=== PATIENT | male | born 1965 | race African-American/Black ===

== ENCOUNTER 2018-08-01 14:50 | Outpatient (CLI) | payer BC ==
[2018-08-01] MEDS ORDERED: Iopamidol 370 76% 100 ML VIAL ONE (16:23)
--- NOTE | 2018-08-01 17:52 | CT ---
CT ABDOMEN WITH AND WITHOUT IV CONTRAST: 08/01/18 HISTORY: Alcoholic pancreatitis. Abnormal prior CT scan examination. Followup evaluation. COMPARISON: 05/14/18. FINDINGS: There is calcified granuloma at the right lung base. The lung bases are otherwise clear. There is a stable 1.6 cm low density lesion seen within the head of the pancreas, and the parenchyma of the pancreas surrounding this lesion again remains mildly hypodense. The pancreas otherwise enhanc es normally. Postcholecystectomy changes are noted. The liver, spleen, bilateral adrenal glands, kidneys, and opacified bowel demonstrate a normal CT mateo earance. Vascular calcifications seen in the abdominal aorta involving the iliac arteries. There has been no i nterval change compared to the prior exam. IMPRESSION: Overall stable hypodense lesion in the pancreatic head. This is difficult to further characterize. MR I abdomen with and without IV contrast may be helpful for further characterization. POS: PRIYA
== END 2018-08-01 14:51 | disposition home or self-care (01) ==
LOC: BICCT 14:50
PROVIDERS: ATTEND Internal Medicine Gastroenterology
DX: K86.0 Alcohol-induced chronic pancreatitis (principal); R93.3 Abnormal findings on diagnostic imaging of other parts of digestive tract; K86.9 Disease of pancreas, unspecified
CPT/HCPCS: 74170

== ENCOUNTER 2019-03-12 08:51 | Outpatient (CLI) | payer BC ==
--- NOTE | 2019-03-12 09:56 | CT ---
CT CHEST WITH IV CONTRAST CLINICAL INDICATION: Patient reports abnormal chest x-ray at outside institution. COMPARISON: None FINDINGS: Aorta: Vascular calcifications are seen in the coronary arteries as well as involving the thoracic ao rta. The thoracic aorta is normal in caliber without evidence of an aortic dissection. Lungs: There are scattered areas of linear and slight groundglass densities seen at the medial aspect of the upper lobes bilaterally in a paramediastinal location as well as involving the region of the lingula and each lower lobe. Findings may be related to infectious or inflammatory process. No di screte pulmonary nodule or mass is identified. No pleural effusion is seen. Calcified granulomata are seen at the right lung base. Mediastinum: There is no evidence of lymphadenopathy. Thyroid gland: Normal CT appearance. Osseous structures: Remote anterior right-sided rib fractures are seen. There is a compression fractu re involving the T8 vertebral body of indeterminate age. Small Schmorl's node is seen in the superior endplate of the T8 vertebral body. Chest wall: No abnormality visualized. Upper abdomen: Visualized liver demonstrates decreased attenuation which may be attributable to fatty infiltration. Postcholecystectomy changes are noted. IMPRESSION: 1. Scattered linear and groundglass densities within the lungs bilaterally which may be attributable to infectious or inflammatory process. Follow-up evaluation is recommended. 2. No discrete pulmonary nodule or mass is seen, and there is no pleural effusion. 3. Prominent vascular calcifications involving the coronary arteries. 4. Fatty infiltration liver. 5. Postcholecystectomy changes. 6. Indeterminate age wedge-shaped compression fracture T8 vertebral body. Remote anterior right-sided rib fractures are seen.
== END 2019-03-12 08:52 | disposition home or self-care (01) ==
LOC: BICCT 08:51
PROVIDERS: ATTEND Family Medicine
DX: R91.8 Other nonspecific abnormal finding of lung field (principal); I25.10 Atherosclerotic heart disease of native coronary artery without angina pectoris; K76.0 Fatty (change of) liver, not elsewhere classified; Z90.49 Acquired absence of other specified parts of digestive tract
CPT/HCPCS: 71260

== ENCOUNTER 2022-08-23 14:30 | Outpatient (CLI) | payer BC | END 2022-08-23 14:31 | disposition home or self-care (01) | LOC: BICRAD 14:30 | PROVIDERS: ATTEND Nurse Practitioner Family | DX: M43.17 Spondylolisthesis, lumbosacral region (principal); M54.16 Radiculopathy, lumbar region | CPT/HCPCS: 72120 ==

== ENCOUNTER 2022-11-22 10:32 | Outpatient (CLI) | payer BC ==
[2022-11-22 11:54] LABS: Hemoglobin 13.2 g/dL (13.5-17.5); Mean Corpuscular HGB CONC 35.3 g/dL (32.0-36.0); Mean Platelet Volume 9.9 fl (7.4-10.4); Platelet Count 135 10x3/uL (150-450); RBC Distribution Width 14.3 % (11.5-14.5); White Blood Cell (WBC) Count 4.6 10x3/uL (3.5-10.5)
[2022-11-22 11:57] LABS: INR-International Normal Ratio 1.1; PTT 29.8 sec (22.0-33.0); Prothrombin Time 12.2 sec (9.5-12.1)
== END 2022-11-22 10:33 | disposition home or self-care (01) ==
LOC: LABBT 10:32
PROVIDERS: ATTEND Neurological Surgery
DX: Z01.812 Encounter for preprocedural laboratory examination (principal); M43.16 Spondylolisthesis, lumbar region; M48.062 Spinal stenosis, lumbar region with neurogenic claudication
CPT/HCPCS: 85027; 85610; 85730

== ENCOUNTER 2022-11-24 05:44 | Observation (INO) | payer BC ==
[2022-11-23 10:11] VITALS: BMI 25.0
[2022-11-24] MEDS ORDERED: Bupivacaine HCl 0.5%/Epinephrine 1:200,000/PF 30 ml Vial ONE (06:10)
[2022-11-24] MEDS ORDERED: Thrombin 5000 UNITS/5 ML VIAL ONE (06:10)
[2022-11-24] MEDS ORDERED: Vancomycin 1 GM VIAL ONE (06:10)
[2022-11-24] MEDS ORDERED: Neomycin-Polymyxin 1 ML AMP ONE ×2 (06:10→11:38)
[2022-11-24] MEDS ORDERED: CEFAZOLIN 2 GM VIAL ONE (06:39)
[2022-11-24] MEDS ORDERED: Sodium Chloride 0.9% 100 ML ONE (06:39)
[2022-11-24] MEDS ORDERED: Fentanyl 250 MCG/5 ML VIAL ONE (06:39)
[2022-11-24] MEDS ORDERED: Morphine 2 MG/ML VIAL SLOW IVP PRN (06:46)
[2022-11-24] MEDS ORDERED: Mag-Al 1200 mg/1200 mg/30 ML UDCUP PO PRN (06:46)
[2022-11-24] MEDS ORDERED: Bisacodyl 10 MG SUPP PR PRN (06:46)
[2022-11-24] MEDS ORDERED: Milk Of Magnesia 30 ML UDCUP PO PRN (06:46)
[2022-11-24] MEDS ORDERED: Ondansetron PF 4 MG/2 ML Vial IVP PRN (06:46)
[2022-11-24] MEDS ORDERED: Prochlorperazine 10 MG/2 ML VIAL IM PRN (06:46)
[2022-11-24] MEDS ORDERED: diphenhydrAMINE 50 MG/ML VIAL IVP PRN (06:46)
[2022-11-24] MEDS ORDERED: Acetaminophen/Codeine 30-300mg Tablet PO PRN (06:46)
[2022-11-24] MEDS ORDERED: HYDROcodone/Acetaminophen 7.5/325 mg Tablet PO PRN (06:46)
[2022-11-24] MEDS ORDERED: tiZANidine HCl 4 MG TAB PO PRN (06:48)
[2022-11-24] MEDS ORDERED: PROPOFOL 200 MG/20 ML VIAL ONE (06:55)
[2022-11-24] MEDS ORDERED: Glycopyrrolate 0.2 MG/ML 5 ML SYRINGE ONE (06:55)
[2022-11-24] MEDS ORDERED: Ondansetron PF 4 MG/2 ML Vial ONE (06:55)
[2022-11-24] MEDS ORDERED: Rocuronium Bromide 10 MG/ML (10ML VIAL) ONE (06:55)
[2022-11-24] MEDS ORDERED: Lidocaine 1% PF 5 ML VIAL ONE (06:55)
[2022-11-24] MEDS ORDERED: Dexamethasone 20 MG/5 ML VIAL ONE (06:55)
[2022-11-24] MEDS ORDERED: NEOSTIGMINE 3 MG/3 ML SYR 3 MG/3 ML SYRINGE ONE (06:55)
[2022-11-24] MEDS ORDERED: Vecuronium 10 MG VIAL ONE (06:55)
[2022-11-24] MEDS ORDERED: PHENYLEPHRINE-NS 100 MCG/ML 10 ML SYRINGE ONE ×2 (06:55→07:52)
[2022-11-24 07:08] LABS: SARS-CoV-2 NAA Rapid Test Not Detected (NotDetected)
[2022-11-24] MEDS ORDERED: HYDROmorphone 2 MG/ML VIAL ONE (12:40)
[2022-11-24] MEDS ORDERED: HYDROmorphone 2 MG/ML VIAL SLOW IVP PRN (13:05)
[2022-11-24] MEDS ORDERED: Morphine Sulfate 2 MG/ML SYRINGE SLOW IVP PRN (13:05)
[2022-11-24] MEDS ORDERED: PACU-Morphine 4MG/ML VIAL SLOW IVP PRN (13:05)
[2022-11-24] MEDS ORDERED: Ondansetron HCl/PF 4 MG/2 ML Vial IVP PRN (13:05)
[2022-11-24] MEDS ORDERED: Promethazine HCl 25 MG/ML VIAL IM PRN (13:05)
[2022-11-24] MEDS ORDERED: CEFAZOLIN 2 GM in Sodium Chloride 0.9% 100 ML IVPB SCH (14:00)
[2022-11-24] MEDS: Sodium Chloride 0.9% 1,000 ML IV SCH (16:24)
[2022-11-24] MEDS: CEFAZOLIN 2 GM in Sodium Chloride 0.9% 100 ML IVPB SCH (20:00)
[2022-11-24] MEDS: HYDROcodone/Acetaminophen 10/325 mg Tablet PO PRN (21:06)
[2022-11-25] MEDS: CEFAZOLIN 2 GM in Sodium Chloride 0.9% 100 ML IVPB SCH (03:32)
[2022-11-25] MEDS: HYDROcodone/Acetaminophen 10/325 mg Tablet PO PRN ×2 (03:34→09:35)
[2022-11-25 12:13] VITALS: BP 103/63; TEMP 97.9
[2022-11-25] MEDS: Sodium Chloride 0.9% 1,000 ML IV SCH (15:11)
== END 2022-11-25 15:40 | disposition home or self-care (01) ==
LOC: SDC 05:44 → SJJU 06:06
PROVIDERS: ADMIT Neurological Surgery; ATTEND Neurological Surgery
PROC: 0SG30AJ Fusion of Lumbosacral Joint with Interbody Fusion Device, Posterior Approach, Anterior Column, Open Approach (ICD-10-PCS; principal; 2022-11-24)
DX: M43.17 Spondylolisthesis, lumbosacral region (principal); M47.27 Other spondylosis with radiculopathy, lumbosacral region; M48.061 Spinal stenosis, lumbar region without neurogenic claudication; F10.21 Alcohol dependence, in remission; F19.11 Other psychoactive substance abuse, in remission; E78.00 Pure hypercholesterolemia, unspecified; F17.210 Nicotine dependence, cigarettes, uncomplicated; M19.90 Unspecified osteoarthritis, unspecified site; Z20.822 Contact with and (suspected) exposure to COVID-19
CPT/HCPCS: C1713; C1768; C1776; C1889; J1100; J1170; J2405; J2704; J3010; J3370; J3490; J7050; U0002

== ENCOUNTER 2023-01-17 09:58 | Outpatient (CLI) | payer BC | END 2023-01-17 09:59 | disposition home or self-care (01) | LOC: BICRAD 09:58 | PROVIDERS: ATTEND Family Medicine | DX: M43.16 Spondylolisthesis, lumbar region (principal); Z98.890 Other specified postprocedural states | CPT/HCPCS: 72100 ==

== ENCOUNTER 2024-03-19 19:02 | Observation (INO) | payer BC ==
[2024-03-19] MEDS ORDERED: Magnesium 2 GM/50 ML BAG (IN WATER) ONE (20:06)
[2024-03-19 20:38] LABS: Hematocrit 31.4 % (42.0-52.0); Hemoglobin 10.9 g/dL (14.0-18.0); Mean Corpuscular HGB CONC 34.7 g/dL (32.0-36.0); Mean Corpuscular Hemoglobin 25.5 pg (27.0-31.0); Mean Corpuscular Volume 73.5 fL (78.0-98.0); Mean Platelet Volume 8.8 fL (7.4-10.4); Platelet Count 187 10x3/uL (130-400); RBC Distribution Width 15.9 % (11.5-14.5); Red Blood Cell (RBC) Count 4.27 mill/uL (4.70-6.10)
[2024-03-19 20:53] LABS: Acetaminophen Less than 10 mcg/mL (10.0-30.0); Alcohol 44.8 mg/dL (Less than 10); Salicylate Less than 8.0 mg/dL (15.0-30.0)
[2024-03-19 20:54] LABS: ALT (SGPT) 26 U/L (8-55); AST (SGOT) 66 U/L (5-34); Alkaline Phosphatase 93 U/L (40-110); Anion Gap 15 mmol/L (10-20); BUN (Urea Nitrogen) 12 mg/dL (8.4-25.7); Calc. Creatinine Clearance 0 mL/min (70-130); Calcium 8.5 mg/dL (7.8-10.44); Carbon Dioxide 16 mmol/L (22-29); Chloride 105 mmol/L (98-107); Estimated GFR 89; Globulin 4.1 g/dL (2.4-3.5); Glucose 78 mg/dL (70-105); Magnesium 1.9 mg/dL (1.6-2.6); Potassium 3.8 mmol/L (3.5-5.1); Protein, Total 7.1 g/dL (6.0-8.3); Sodium 132 mmol/L (136-145)
[2024-03-19 20:58] LABS: Troponin I 0.173 ng/mL (< 0.028)
[2024-03-19 21:02] LABS: Anisocytosis SLIGHT = 6-15 cells HPF (0-5); Eosinophils 3 % (0-10); Lymphocytes 31 % (21-51); Microcytosis SLIGHT = 6-15 cells HPF (0-5); Monocytes 12 % (0-10); Neutrophil 54 % (42-75); Platelet Adequacy Comment Platelets Normal; Polychromasia SLIGHT = 2-3 cells HPF (0-2)
[2024-03-19] MEDS ORDERED: Aspirin Chewable 81 MG TAB ONE (21:43)
[2024-03-19 22:16] LABS: Bilirubin, Total 0.6 mg/dL (0.2-1.2)
[2024-03-19] MEDS ORDERED: Thiamine HCl 200 MG/2 ML VIAL ONE (22:21)
[2024-03-19 23:34] VITALS: BMI 24.4
[2024-03-19] MEDS ORDERED: Ondansetron ODT 4 MG TAB PO PRN (23:36)
[2024-03-19] MEDS ORDERED: Lorazepam 1 MG TAB PO PRN (23:36)
[2024-03-19] MEDS ORDERED: Lorazepam 2 MG/ML VIAL IM PRN (23:36)
[2024-03-19 23:37] LABS: Lactic Acid 1.2 mmol/L (0.5-2.2)
[2024-03-19] MEDS ORDERED: Acetaminophen 650 MG Suppository PR PRN (23:41)
[2024-03-19] MEDS ORDERED: Ondansetron PF 4 MG/2 ML Vial IVP PRN (23:41)
[2024-03-19] MEDS ORDERED: Acetaminophen 325 MG TAB PO PRN (23:41)
[2024-03-19] MEDS ORDERED: Electrolyte Replacement Protocol 1 EACH FS SCH (23:45)
[2024-03-19 23:47] LABS: Troponin I 0.144 ng/mL (< 0.028)
[2024-03-20] MEDS ORDERED: Electrolyte Replacement Protocol 1 EACH FS PRN (00:11)
[2024-03-20] MEDS ORDERED: HYDROcodone/Acetaminophen 5/325 mg Tablet ONE (00:21)
[2024-03-20] MEDS: HYDROcodone/Acetaminophen 5/325 mg Tablet PO PRN (00:26)
[2024-03-20 02:56] LABS: #Basophils 0.08 10x3/uL (0.0-0.2); %Basophils 1.3 % (0.0-1.0); %Eosinophils 2.7 % (0.0-10.0); %Neutrophils 40.8 % (42.0-75.0); Hematocrit 32.5 % (42.0-52.0); Hemoglobin 11.1 g/dL (14.0-18.0); Mean Corpuscular HGB CONC 34.2 g/dL (32.0-36.0); Mean Corpuscular Hemoglobin 26.2 pg (27.0-31.0); Mean Corpuscular Volume 76.7 fL (78.0-98.0); Platelet Count 202 10x3/uL (130-400); RBC Distribution Width 15.9 % (11.5-14.5); Red Blood Cell (RBC) Count 4.24 mill/uL (4.70-6.10)
[2024-03-20] MEDS: Lactated Ringer's 1,000 ML IV SCH (03:08)
[2024-03-20 03:26] LABS: Troponin I 0.166 ng/mL (< 0.028)
[2024-03-20 04:35] LABS: Anion Gap 16 mmol/L (10-20); BUN (Urea Nitrogen) 14 mg/dL (8.4-25.7); Calc. Creatinine Clearance 112 mL/min (70-130); Calcium 9.3 mg/dL (7.8-10.44); Carbon Dioxide 18 mmol/L (22-29); Chloride 102 mmol/L (98-107); Estimated GFR 100; Glucose 81 mg/dL (70-105); Potassium 3.9 mmol/L (3.5-5.1); Sodium 132 mmol/L (136-145)
[2024-03-20] MEDS: Folic Acid 1 MG TAB PO SCH (10:30)
[2024-03-20] MEDS: Famotidine/PF 20 mg/2ml Vial SLOW IVP SCH (10:30)
[2024-03-20] MEDS: Multivit, Therapeutic 1 TAB PO SCH (10:30)
[2024-03-20] MEDS: Famotidine 20 MG TAB PO SCH (10:30)
[2024-03-20] MEDS ORDERED: Ketorolac Tromethamine 30 MG (1 mL) VIAL ONE (11:46)
[2024-03-20] MEDS: Ketorolac Tromethamine 30 MG (1 mL) VIAL IVP PRN (11:58)
[2024-03-20 15:49] LABS: Amphetamine Not Detected (NotDetected); Barbiturates Screen Not Detected (NotDetected); Benzodiazepine Screen Not Detected (NotDetected); Cocaine Metabolite Screen Not Detected (NotDetected); Methadone Not Detected (NotDetected); Methamphetamine Not Detected (NotDetected); Opiate Screen Detected (NotDetected); Oxycodone Screen Not Detected (NotDetected); Phencyclidine (PCP) Not Detected (NotDetected); THC/Cannabinoid Screen Not Detected (NotDetected); Tricyclic Screen Not Detected (NotDetected)
[2024-03-20 15:55] VITALS: BP 155/92; TEMP 97.8
[2024-03-20 16:16] LABS: Anion Gap 13 mmol/L (10-20); BUN (Urea Nitrogen) 14 mg/dL (8.4-25.7); Calc. Creatinine Clearance 108 mL/min (70-130); Calcium 9.4 mg/dL (7.8-10.44); Carbon Dioxide 25 mmol/L (22-29); Chloride 101 mmol/L (98-107); Estimated GFR 98; Glucose 92 mg/dL (70-105); Potassium 3.8 mmol/L (3.5-5.1); Sodium 135 mmol/L (136-145)
[2024-03-20 16:22] LABS: Troponin I 0.115 ng/mL (< 0.028)
[2024-03-20] MEDS ORDERED: Lorazepam 1 MG TAB PO PRN (23:36)
[2024-03-21] MEDS ORDERED: Lorazepam 1 MG TAB PO PRN (23:36)
[2024-03-22] MEDS ORDERED: Lorazepam 0.5 MG TAB PO PRN (23:36)
== END 2024-03-20 17:57 | disposition home or self-care (01) ==
LOC: ERS 19:02 → ERHOLD 22:40 → 2SW 03-20 14:09
PROVIDERS: ADMIT Student in an Organized Health Care Education/Training Program; ATTEND Internal Medicine
DX: I95.9 Hypotension, unspecified (principal); R53.1 Weakness; R77.8 Other specified abnormalities of plasma proteins; F10.90 Alcohol use, unspecified, uncomplicated; Z96.652 Presence of left artificial knee joint
CPT/HCPCS: 36415; 71045; 80048; 80053; 80306; 80307; 83605; 83735; 84484; 85025; 87040; 93005; 96375; G0378; J1885; J3411; J3475; J7120; S0028

== ENCOUNTER 2025-08-24 11:02 | Outpatient (CLI) | payer BC ==
[2025-08-24 11:46] LABS: Estimated GFR - POC 98.0
== END 2025-08-24 11:03 | disposition home or self-care (01) ==
LOC: SCSMRI 11:02
PROVIDERS: ATTEND Internal Medicine Gastroenterology
DX: K86.0 Alcohol-induced chronic pancreatitis (principal); R93.3 Abnormal findings on diagnostic imaging of other parts of digestive tract; R93.2 Abnormal findings on diagnostic imaging of liver and biliary tract; K76.0 Fatty (change of) liver, not elsewhere classified; K70.30 Alcoholic cirrhosis of liver without ascites
CPT/HCPCS: 36415; 74183; 82565